=== PATIENT | male | born 1955 | race Caucasian/White ===

== ENCOUNTER 2021-08-21 20:12 | Emergency (ER) | payer BC, OTHER ==
[~2021-08-21 20:12] MED LIST: Sodium Chloride 0.9% 50 ML BAG ONE; Sodium Chloride 0.9% 500 ML BAG ONE
[2021-08-21 21:00] LABS: #Basophils 0.1 thou/uL (0.0-0.2); #Lymphocytes 2.3 thou/uL (1.20-3.40); #Monocytes 0.7 thou/uL (0.11-0.59); #Neutrophils 10.3 thou/uL (1.40-6.50); %Basophils 0.5 % (0.0-1.0); %Eosinophils 0.3 % (0.0-10.0); %Lymphocytes 17.4 % (21.0-51.0); %Monocytes 5.5 % (0.0-10.0); %Neutrophils 76.3 % (42.0-75.0); Hemoglobin 10.7 g/dL (14.0-18.0); Mean Corpuscular HGB CONC 35.8 g/dL (32.0-36.0); Mean Corpuscular Hemoglobin 31.7 pg (27.0-31.0); Mean Corpuscular Volume 88.7 fL (78.0-98.0); Mean Platelet Volume 10.3 fL (7.4-10.4); Platelet Count 201 thou/uL (130-400); RBC Distribution Width 11.7 % (11.5-14.5); Red Blood Cell (RBC) Count 3.38 mill/uL (4.70-6.10); White Blood Cell (WBC) Count 13.4 thou/uL (4.8-10.8)
[2021-08-21 21:19] LABS: ALT (SGPT) 22 U/L (8-55); AST (SGOT) 10 U/L (5-34); Albumin 3.6 g/dL (3.4-4.8); Alkaline Phosphatase 51 U/L (40-110); Anion Gap 18 mmol/L (10-20); BUN (Urea Nitrogen) 49 mg/dL (8.4-25.7); Bilirubin, Total 0.3 mg/dL (0.2-1.2); Calc. Creatinine Clearance 0 mL/min (70-130); Calcium 9.7 mg/dL (7.8-10.44); Carbon Dioxide 20 mmol/L (23-31); Chloride 107 mmol/L (98-107); Estimated GFR 68; Globulin 2.4 g/dL (2.4-3.5); Glucose 196 mg/dL (80-115); Magnesium 1.6 mg/dL (1.6-2.6); Potassium 3.7 mmol/L (3.5-5.1); Sodium 141 mmol/L (136-145)
[2021-08-21] MEDS ORDERED: Pantoprazole 40 MG VIAL ONE (21:33)
[2021-08-21 22:24] LABS: SARS-CoV-2 NAA Rapid Test Not Detected (NotDetected)
[2021-08-22 00:08] LABS: Troponin I 0.027 ng/mL (< 0.028)
[2021-08-22 00:30] LABS: Hemoglobin 10.2 g/dL (14.0-18.0)
[2021-08-22 07:50] LABS: Hemoglobin 9.7 g/dL (14.0-18.0)
[2021-08-22] MEDS ORDERED: Pantoprazole 40 MG VIAL ONE (11:02)
[2021-08-22] MEDS ORDERED: Sodium Chloride 0.9% 1,000 ML ONE (11:02)
== END 2021-08-22 13:50 | disposition short-term general hospital (02) ==
LOC: MADERS 20:12
DX: K92.2 Gastrointestinal hemorrhage, unspecified (principal); R00.2 Palpitations; R53.1 Weakness; I44.4 Left anterior fascicular block; I10 Essential (primary) hypertension; E11.9 Type 2 diabetes mellitus without complications; K21.9 Gastro-esophageal reflux disease without esophagitis; Z20.822 Contact with and (suspected) exposure to COVID-19; Z87.891 Personal history of nicotine dependence; Z79.84 Long term (current) use of oral hypoglycemic drugs; Z79.899 Other long term (current) drug therapy
CPT/HCPCS: 71045; 80053; 82274; 83735; 83880; 84443; 84484; 85014; 85018; 85025; 86850; 86900; 86901; 93005; 96365; 96376; C9113; J7030; J7050; U0002